=== PATIENT | male | born 1945 | race Asian ===

== ENCOUNTER 2022-05-30 06:46 | Day surgery (SDC) | payer OTHER ==
[2022-05-29 19:27] VITALS: BMI 24.2
[2022-05-30] MEDS ORDERED: LIDOCAINE HCL/PF 2% SDV 5ML VIAL ONE (08:11)
[2022-05-30] MEDS ORDERED: PROPOFOL 60 ML ONE (08:11)
[2022-05-30 10:03] VITALS: RESP 16
[2022-05-30 10:24] VITALS: BP 131/88; PULSE 64; TEMP 97
== END 2022-05-30 10:41 | disposition home or self-care (01) ==
LOC: FASU-ENDO 06:46
PROVIDERS: ATTEND Internal Medicine
PROC: 0DB48ZX Excision of Esophagogastric Junction, Via Natural or Artificial Opening Endoscopic, Diagnostic (ICD-10-PCS; principal; 2022-05-30 09:43)
DX: K22.70 Barrett's esophagus without dysplasia (principal); K21.00 Gastro-esophageal reflux disease with esophagitis, without bleeding; Z87.19 Personal history of other diseases of the digestive system
CPT/HCPCS: 87426; 88305-TC; C9803-CS; U0003; U0005